=== PATIENT | male | born 1990 | race African-American/Black ===

== ENCOUNTER 2018-01-06 19:20 | Inpatient (IN) | payer OTHER ==
[2018-01-06 20:35] VITALS: BMI 23.5
--- NOTE | 2018-01-06 21:17 | HP ---
CIWA Score - CIWA Score Nausea/Vomitin (VOMITING X 3) Muscle Tremors: 3 Anxiety: 4-Mod. Anxious/Guarded Agitation: 1-Slight > Activity Paroxysmal Sweats: 4-Forehead w/Sweat Beads Orientation: 1-Uncertain about Date Tacttile Disturbances: 0-None Auditory Disturbances: 0-None Visual Disturbances: 0-None Headache: 0-None Present CIWA-Ar Total Score: 16 Admission ROS S - HPI Chief Complaint: Alcohol withdrawal symptoms Allergies/Adverse Reactions: Allergies Allergy/AdvReac Type Severity Reaction Status Date / Time No Known Allergies Allergy Verified 01/06/18 20:36 History of Present Illness: 27 years old male with 15 years history of alcohol dependence is seeking admission to detox. Patient has been in previous detox and reports insignificant period of sobriety. This is his first admission to [facility]. He reports medical history of anxiety and depression. He denies suicide attempt and suicidal ideation at this time. Exam Limitations: No Limitations - Ebola screening Have you traveled outside of the country in the last 21 days: No (N) Have you had contact with anyone from an Ebola affected area: No Have you been sick,other than usual withdrawal symptoms: No Do you have a fever: No - Review of Systems Constitutional: Chills, Loss of Appetite, Malaise, Night Sweats, Weakness EENT: reports: Sinus Pressure Respiratory: reports: No Symptoms reported Cardiac: reports: No Symptoms Reported GI: reports: Nausea, Poor Appetite, Poor Fluid Intake, Vomiting (x 3), Abdominal cramping : reports: No Symptoms Reported Musculoskeletal: reports: No Symptoms Reported Integumentary: reports: Dryness Neuro: reports: Tremors Endocrine: reports: No Symptoms Reported Hematology: reports: No Symptoms Reported Psychiatric: reports: Orientated x3, Anxious, Depressed Other Systems: Reviewed and Negative Patient History - Patient Medical History Hx Anemia: No Hx Asthma: No Hx Chronic Obstructive Pulmonary Disease (COPD): No Hx Cardiac Disorders: No Hx Hypertension: No Hx Hypercholesterolemia: No Hx Pacemaker: No HX Cerebrovascular Accident: No Hx Seizures: No Hx Dementia: No Hx Diabetes: No Hx Gastrointestinal Disorders: No Hx Genitourinary Disorders: No Hx Sexually Transmitted Disorders: No Hx Renal Disease (ESRD): No Hx Thyroid Disease: No Hx Human Immunodeficiency Virus (HIV): No (Negative 2017) Hx Hepatitis C: No Hx Depression: Yes (Not on medication) Hx Suicide Attempt: No Hx Bipolar Disorder: No Hx Schizophrenia: Yes (pascale Rios) Other Medical History: Anxiety - Not on medication - Patient Surgical History Past Surgical History: No Hx Neurologic Surgery: No Hx Cataract Extraction: No Hx Cardiac Surgery: No Hx Lung Surgery: No Hx Breast Surgery: No Hx Breast Biopsy: No Hx Abdominal Surgery: No Hx Appendectomy: No Hx Cholecystectomy: No Hx Genitourinary Surgery: No Hx Section: No Hx Orthopedic Surgery: No Anesthesia Reaction: No - PPD History Previous Implant?: Yes Documented Results: Negative w/o proof Implanted On Prior [facility] Admission?: No PPD to be Administered?: Yes - Reproductive History Patient is a Female of Child Bearing Age (11 -55 yrs old): No (MALE) - Smoking Cessation Smoking history: Current every day smoker Have you smoked in the past 12 months: Yes Aproximately how many cigarettes per day: 10 Hx Chewing Tobacco Use: No Initiated information on smoking cessation: Yes 'Breaking Loose' booklet given: 01/06/18 - Substance & Tx. History Hx Alcohol Use: Yes Hx Substance Use: No Substance Use Type: Alcohol Hx Substance Use Treatment: Yes ([facility]) - Substances Abused Alcohol Route: Oral Frequency: Daily Amount used: LIQUOR- 1 PINT, BEER- 1 SIX PACK Age of first use: 12 Date of Last Use: 01/06/18 Family Disease History - Family Disease History Family History: Denies Admission Physical Exam BHS - Vital Signs Vital Signs: Vital Signs - 24 hr 01/06/18 20:28 Temperature 97.9 F Pulse Rate 80 Respiratory 18 Rate Blood Pressure 146/95 - Physical General Appearance: Yes: Moderate Distress, Tremorous, Irritable, Sweating, Anxious HEENTM: Yes: EOMI, Normal ENT Inspection, Normocephalic, Normal Voice, JUAN RAMON, Nasal Congestion Respiratory: Yes: Lungs Clear, Normal Breath Sounds, No Respiratory Distress Neck: Yes: Supple Breast: Yes: Breast Exam Deferred Cardiology: Yes: Regular Rhythm, Regular Rate Abdominal: Yes: Normal Bowel Sounds, Soft Genitourinary: Yes: Within Normal Limits Back: Yes: Normal Inspection Musculoskeletal: Yes: Within Normal Limits Extremities: Yes: Tremors 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, Motor Strength 5/5 Integumentary: Yes: Warm Lymphatic: Yes: Within Normal Limits - Diagnostic (1) Alcohol dependence with uncomplicated withdrawal Current Visit: Yes Status: Chronic (2) Depression Current Visit: Yes Status: Chronic Qualifiers: Depression Type: unspecified Qualified Code(s): F32.9 - Major depressive disorder, single episode, unspecified (3) Anxiety Current Visit: Yes Status: Chronic Cleared for Admission [facility] - Detox or Rehab [facility] Level of Care: Medically Managed Detox Regimen/Protocol: Librium S Breath Alcohol Content Breath Alcohol Content: 0.038 Urine Drug Screen - Results Drug Screen Negative: Yes
[2018-01-06] MEDS ORDERED: LOPERAMIDE HCL 2 MG CAPSULE PO PRN (21:28)
[2018-01-06] MEDS ORDERED: IBUPROFEN 400 MG TABLET (FP) PO PRN (21:28)
[2018-01-06] MEDS ORDERED: MAGNESIUM HYDROX 2400MG/30ML ORAL SUSPENSION 30 ML CUP PO PRN (21:28)
[2018-01-06] MEDS ORDERED: MAG HYDROX/AL HYDROX/SIMETH 30 ML UNIT-DOSE CUP PO PRN (21:28)
[2018-01-06] MEDS ORDERED: ACETAMINOPHEN 325 MG TABLET (FP) PO PRN (21:28)
[2018-01-06] MEDS ORDERED: MAGNESIUM CITRATE 300 ML BOTTLE PO PRN (21:28)
[2018-01-06] MEDS ORDERED: P-EPHED 60MG/TRIPROLIDI 2.5MG TABLET PO PRN (21:28)
[2018-01-06] MEDS ORDERED: MENTHOL/PHENOL 1 EACH UD MM PRN (21:28)
[2018-01-06] MEDS ORDERED: chlordiazePOXIDE HCL 25 MG CAPSULE PO PRN (21:28)
[2018-01-06] MEDS ORDERED: guaiFENesin/D-METHORPHAN HB 10 ML UNIT-DOSE CUPS PO PRN (21:28)
[2018-01-06] MEDS ORDERED: MELATONIN 5 MG TABLETS PO PRN (22:00)
[2018-01-06] MEDS: THIAMINE HCL 100 MG TABLET (FP) PO SCH (23:34)
[2018-01-06] MEDS: chlordiazePOXIDE HCL 25 MG CAPSULE PO SCH (23:34)
[2018-01-07] MEDS: chlordiazePOXIDE HCL 25 MG CAPSULE PO SCH ×4 (05:14→22:04)
--- NOTE | 2018-01-07 10:08 | CONSULT ---
[facility] Psychiatric Consult - Data Date of interview: 01/07/18 Admission source: Self-referred Identifying data: Patient is a 27 y/o male single, unemployed, homeless, no support system, father of 3 Substance Abuse History: Admitted for the first time to [facility] due to ETOH use disorder. He has been drinking since his adolescence age. Drink beer and rhum. He has been in an out patient Detox treatment in [facility]. Refer to addiction counselor note for more detailed history Medical History: He denies active medical problem Psychiatric History: He has prior psychiatric hospitalizations in [address] [facility]. Diagnosed with Schizophrenia medciated with Haldol and Cogentin and Trazodone. He attends out patient care treatment @ [facility]. Denies feeling depressed or anxious. Denies auditory or visual hallucination, denies suicidal or hoimicidal ideation Physical/Sexual Abuse/Trauma History: Denied Mental Status Exam - Mental Status Exam Alert and Oriented to: Place, Person Cognitive Function: Fair Patient Appearance: Unkempt, Disheveled Mood: Apathetic, Depressed Affect: Constricted Patient Behavior: Fatigued, Guarded, Suspicious, Cooperative Speech Pattern: Delayed, Pressured Voice Loudness: Moderately Soft/Quiet Thought Process: Loose Associations Thought Disorder: Not Present Hallucinations: Denies Suicidal Ideation: Denies Homicidal Ideation: Denies Insight/Judgement: Poor Sleep: Poorly Appetite: Fair Muscle strength/Tone: Normal Gait/Station: Normal Psychiatric Findings - Problem List ([place] 1, 2,3) (1) Schizophrenia Current Visit: Yes Status: Acute (2) Alcohol dependence with uncomplicated withdrawal Current Visit: Yes Status: Chronic (3) Depression Current Visit: Yes Status: Chronic Qualifiers: Depression Type: unspecified Qualified Code(s): F32.9 - Major depressive disorder, single episode, unspecified - Initial Treatment Plan Initial Treatment Plan: Continue Detox treatment. Monitor progress. psychoeducation. Haldol 5 mg po daily. Cogentin 2 mg po daily. Trazodone 50 mg po q cummings
[2018-01-07] MEDS: PRENATAL VITAMINS W/ FOLIC ACID TABLET (FP) PO SCH (10:13)
[2018-01-07] MEDS ORDERED: HALOPERIDOL 5 MG TABLET (FP) PO ONE (10:30)
[2018-01-07] MEDS ORDERED: BENZTROPINE MESYLATE 2 MG TABLET PO SCH (10:30)
[2018-01-07 11:20] LABS: HEMATOCRIT 45.1 % (35.4-49); MCH 28.5 pg (25.7-33.7); MCHC 33.3 g/dl (32.0-35.9); MEAN CELL VOLUME 85.8 fl (80-96); MEAN PLT VOLUME 7.2 fl (7.5-11.1); PLATELET COUNT 198 K/MM3 (134-434); RBC 5.26 M/mm3 (4.00-5.60); RDW 12.7 % (11.9-15.9); WHITE BLOOD COUNT 6.3 K/mm3 (4.0-10.0)
[2018-01-07 11:35] LABS: ALBUMIN 3.6 g/dl (3.4-5.0); ALK PHOS 64 U/L (45-117); ANION GAP 8 MMOL/L (8-16); BILIRUBIN,TOTAL 0.5 mg/dL (0.2-1); BLOOD UREA NITROGEN 8 mg/dL (7-18); CALCIUM 9.1 mg/dL (8.5-10.1); CHLORIDE 103 mmol/L (98-107); CO2 29 mmol/L (21-32); CREATININE 1.1 mg/dL (0.55-1.3); GLUCOSE,RANDOM 88 mg/dL (74-106); POTASSIUM 3.9 mmol/L (3.5-5.1); SGOT/AST 36 U/L (15-37); SGPT/ALT 28 U/L (13-61); SODIUM 139 mmol/L (136-145); TOT PROT 6.7 g/dl (6.4-8.2)
[2018-01-07] MEDS ORDERED: HALOPERIDOL 5 MG TABLET (FP) PO PRN (13:35)
--- NOTE | 2018-01-07 16:10 | PN ---
S CIWA - CIWA Score Nausea/Vomitin Muscle Tremors: 4-Moderate,w/Arms Extend Anxiety: 4-Mod. Anxious/Guarded Agitation: 4-Moderately Restless Paroxysmal Sweats: 3 Orientation: 0-Oriented Tacttile Disturbances: 0-None Auditory Disturbances: 0-None Visual Disturbances: 0-None Headache: 1-Very Mild CIWA-Ar Total Score: 18 BHS Progress Note (SOAP) Subjective: Sweating, chills, interrupted sleep, body aches Objective: 01/07/18 16:09 Last Vital Signs Temp Pulse Resp BP Pulse Ox 97.2 F L 82 20 122/80 01/07/18 14:56 01/07/18 14:56 01/07/18 14:56 01/07/18 14:56 Laboratory Tests 01/07/18 01/07/18 01/07/18 07:49 07:49 07:49 WBC 6.3 RBC 5.26 Hgb 15.0 Hct 45.1 MCV 85.8 MCH 28.5 MCHC 33.3 RDW 12.7 Plt Count 198 MPV 7.2 L Sodium 139 Potassium 3.9 Chloride 103 Carbon Dioxide 29 Anion Gap 8 BUN 8 Creatinine 1.1 Creat Clearance w eGFR > 60 Random Glucose 88 Calcium 9.1 Total Bilirubin 0.5 AST 36 ALT 28 Alkaline Phosphatase 64 Total Protein 6.7 Albumin 3.6 RPR Titer HIV 1&2 Antibody Screen Negative HIV P24 Antigen Negative 01/07/18 07:49 WBC RBC Hgb Hct MCV MCH MCHC RDW Plt Count MPV Sodium Potassium Chloride Carbon Dioxide Anion Gap BUN Creatinine Creat Clearance w eGFR Random Glucose Calcium Total Bilirubin AST ALT Alkaline Phosphatase Total Protein Albumin RPR Titer Nonreactive HIV 1&2 Antibody Screen HIV P24 Antigen Labs reviewed Assessment: 01/07/18 16:09 Withdrawal sx Plan: Continue detox
[2018-01-07] MEDS: THIAMINE HCL 100 MG TABLET (FP) PO SCH (22:03)
[2018-01-07] MEDS: HALOPERIDOL 5 MG TABLET (FP) PO SCH (22:03)
[2018-01-07] MEDS: traZODone HCL 50 MG TABLET (FP) PO SCH (22:03)
[2018-01-08] MEDS: chlordiazePOXIDE HCL 25 MG CAPSULE PO SCH ×3 (05:29→17:24)
[2018-01-08] MEDS: BENZTROPINE MESYLATE 1 MG TABLET (FP) PO SCH (10:18)
[2018-01-08] MEDS: PRENATAL VITAMINS W/ FOLIC ACID TABLET (FP) PO SCH (10:18)
--- NOTE | 2018-01-08 10:51 | PN ---
S CIWA - CIWA Score Nausea/Vomitin Muscle Tremors: 3 Anxiety: 3 Agitation: 3 Paroxysmal Sweats: 3 Orientation: 0-Oriented Tacttile Disturbances: 0-None Auditory Disturbances: 0-None Visual Disturbances: 0-None Headache: 0-None Present CIWA-Ar Total Score: 14 BHS Progress Note (SOAP) Subjective: Sweating, interrupted sleep Objective: 01/08/18 10:48 Last Vital Signs Temp Pulse Resp BP Pulse Ox 96.6 F L 78 18 92/61 01/08/18 09:34 01/08/18 09:34 01/08/18 09:34 01/08/18 09:34 Hypotension noted Laboratory Tests 01/07/18 01/07/18 01/07/18 07:49 07:49 07:49 WBC 6.3 RBC 5.26 Hgb 15.0 Hct 45.1 MCV 85.8 MCH 28.5 MCHC 33.3 RDW 12.7 Plt Count 198 MPV 7.2 L Sodium 139 Potassium 3.9 Chloride 103 Carbon Dioxide 29 Anion Gap 8 BUN 8 Creatinine 1.1 Creat Clearance w eGFR > 60 Random Glucose 88 Calcium 9.1 Total Bilirubin 0.5 AST 36 ALT 28 Alkaline Phosphatase 64 Total Protein 6.7 Albumin 3.6 RPR Titer HIV 1&2 Antibody Screen Negative HIV P24 Antigen Negative 01/07/18 07:49 WBC RBC Hgb Hct MCV MCH MCHC RDW Plt Count MPV Sodium Potassium Chloride Carbon Dioxide Anion Gap BUN Creatinine Creat Clearance w eGFR Random Glucose Calcium Total Bilirubin AST ALT Alkaline Phosphatase Total Protein Albumin RPR Titer Nonreactive HIV 1&2 Antibody Screen HIV P24 Antigen Labs reviewed Assessment: 01/08/18 10:50 Withdrawal sx Noted with hypotension Plan: Continue detox Hypotension: asymptomatic, encouraged PO water hydration
[2018-01-08] MEDS: traZODone HCL 50 MG TABLET (FP) PO SCH (22:04)
[2018-01-08] MEDS: THIAMINE HCL 100 MG TABLET (FP) PO SCH (22:04)
[2018-01-08] MEDS: HALOPERIDOL 5 MG TABLET (FP) PO SCH (22:04)
[2018-01-08] MEDS: chlordiazePOXIDE 5 MG CAPSULE PO SCH (22:05)
[2018-01-09] MEDS: chlordiazePOXIDE 5 MG CAPSULE PO SCH ×3 (05:20→17:30)
[2018-01-09] MEDS: PRENATAL VITAMINS W/ FOLIC ACID TABLET (FP) PO SCH (10:13)
[2018-01-09] MEDS: BENZTROPINE MESYLATE 1 MG TABLET (FP) PO SCH (10:13)
--- NOTE | 2018-01-09 11:08 | EKG ---
Test Reason : Blood Pressure : / mmHG Vent. Rate : 067 BPM Atrial Rate : 067 BPM P-R Int : 120 ms QRS Dur : 090 ms QT Int : 394 ms P-R-T Axes : 057 061 049 degrees QTc Int : 416 ms NORMAL SINUS RHYTHM NORMAL ECG NO PREVIOUS ECGS AVAILABLE Confirmed by Ridge Stewart MD ([id number]) on 01/09/2018 11:07:39 AM Referred By: Confirmed By:Ridge Stewart MD
--- NOTE | 2018-01-09 11:17 | PN ---
B[facility] Progress Note (SOAP) Subjective: Tremor, sweating Objective: 01/09/18 11:15 Last Vital Signs Temp Pulse Resp BP Pulse Ox 97.1 F L 73 16 98/67 01/09/18 09:20 01/09/18 09:20 01/09/18 09:20 01/09/18 09:20 Hypotension: asymptomatic Laboratory Tests 01/07/18 01/07/18 01/07/18 07:49 07:49 07:49 WBC 6.3 RBC 5.26 Hgb 15.0 Hct 45.1 MCV 85.8 MCH 28.5 MCHC 33.3 RDW 12.7 Plt Count 198 MPV 7.2 L Sodium 139 Potassium 3.9 Chloride 103 Carbon Dioxide 29 Anion Gap 8 BUN 8 Creatinine 1.1 Creat Clearance w eGFR > 60 Random Glucose 88 Calcium 9.1 Total Bilirubin 0.5 AST 36 ALT 28 Alkaline Phosphatase 64 Total Protein 6.7 Albumin 3.6 RPR Titer HIV 1&2 Antibody Screen Negative HIV P24 Antigen Negative 01/07/18 07:49 WBC RBC Hgb Hct MCV MCH MCHC RDW Plt Count MPV Sodium Potassium Chloride Carbon Dioxide Anion Gap BUN Creatinine Creat Clearance w eGFR Random Glucose Calcium Total Bilirubin AST ALT Alkaline Phosphatase Total Protein Albumin RPR Titer Nonreactive HIV 1&2 Antibody Screen HIV P24 Antigen Labs reviewed Assessment: 01/09/18 11:17 Withdrawal sx Noted with hypotension Plan: Continue detox Hypotension: asymptomatic, encouraged PO water intake
[2018-01-09 15:01] LABS: URINE APPEARANCE CLEAR; URINE BILIRUBIN NEGATIVE (<2.0 mg/dL); URINE COLOR LTYELLOW; URINE GLUCOSE (UA) NEGATIVE (NEGATIVE); URINE KETONE NEGATIVE (NEGATIVE); URINE LEUK ESTERASE NEGATIVE (NEGATIVE); URINE NITRITE NEGATIVE (NEGATIVE); URINE PROTEIN NEGATIVE (NEGATIVE); URINE UROBILINOGEN NEGATIVE mg/dL (0.2-1.0)
[2018-01-09] MEDS ORDERED: HYDROCORTISONE 1% TOPICAL CREAM 30 GM TUBE TP SCH (22:00)
[2018-01-09] MEDS: chlordiazePOXIDE HCL 10 MG CAPSULE PO SCH (22:11)
[2018-01-09] MEDS: THIAMINE HCL 100 MG TABLET (FP) PO SCH (22:11)
[2018-01-09] MEDS: HALOPERIDOL 5 MG TABLET (FP) PO SCH (22:11)
[2018-01-09] MEDS: traZODone HCL 50 MG TABLET (FP) PO SCH (22:11)
[2018-01-10] MEDS: chlordiazePOXIDE HCL 10 MG CAPSULE PO SCH (05:24)
[2018-01-10 06:33] VITALS: BP 108/70; PULSE 73; TEMP 97.2
--- NOTE | 2018-01-10 09:52 | DS ---
[facility] Detox Discharge Summary Admission Date: 01/06/18 Discharge Date: 01/10/18 - History Present History: Alcohol Dependence Pertinent Past History: Denies - Physical Exam Results Vital Signs: Vital Signs Temperature 97.2 F L 01/10/18 06:32 Pulse Rate 73 01/10/18 06:32 Respiratory Rate 18 01/10/18 06:32 Blood Pressure 108/70 01/10/18 06:32 O2 Sat by Pulse Oximetry (%) Pertinent Admission Physical Exam Findings: Withdrawal sxs Laboratory Tests 01/07/18 01/07/18 01/07/18 07:49 07:49 07:49 WBC 6.3 RBC 5.26 Hgb 15.0 Hct 45.1 MCV 85.8 MCH 28.5 MCHC 33.3 RDW 12.7 Plt Count 198 MPV 7.2 L Sodium 139 Potassium 3.9 Chloride 103 Carbon Dioxide 29 Anion Gap 8 BUN 8 Creatinine 1.1 Creat Clearance w eGFR > 60 Random Glucose 88 Calcium 9.1 Total Bilirubin 0.5 AST 36 ALT 28 Alkaline Phosphatase 64 Total Protein 6.7 Albumin 3.6 Urine Color Urine Appearance Urine pH Ur Specific [place] Urine Protein Urine Glucose (UA) Urine Ketones Urine Blood Urine Nitrite Urine Bilirubin Urine Urobilinogen Ur Leukocyte Esterase RPR Titer HIV 1&2 Antibody Screen Negative HIV P24 Antigen Negative 01/07/18 01/09/18 07:49 08:40 WBC RBC Hgb Hct MCV MCH MCHC RDW Plt Count MPV Sodium Potassium Chloride Carbon Dioxide Anion Gap BUN Creatinine Creat Clearance w eGFR Random Glucose Calcium Total Bilirubin AST ALT Alkaline Phosphatase Total Protein Albumin Urine Color Ltyellow Urine Appearance Clear Urine pH 6.0 Ur Specific [place] 1.017 Urine Protein Negative Urine Glucose (UA) Negative Urine Ketones Negative Urine Blood Negative Urine Nitrite Negative Urine Bilirubin Negative Urine Urobilinogen Negative Ur Leukocyte Esterase Negative RPR Titer Nonreactive HIV 1&2 Antibody Screen HIV P24 Antigen Labs reviewed - Treatment Hospital Course: Detox Protocol Followed, Detoxed Safely, Responded well, Discharged Condition Good - Medication Discharge Medications: Ambulatory Orders Benztropine Mesylate [Cogentin -] 1 mg PO HS 01/06/18 Haloperidol [Haldol -] 5 mg PO HS 01/06/18 traZODone HCL [Trazodone HCl] 50 mg PO HS 01/06/18 - Diagnosis (1) Schizophrenia Current Visit: Yes Status: Chronic (2) Alcohol dependence with uncomplicated withdrawal Current Visit: Yes Status: Acute (3) Anxiety Current Visit: Yes Status: Acute (4) Depression Current Visit: Yes Status: Chronic Qualifiers: Depression Type: unspecified Qualified Code(s): F32.9 - Major depressive disorder, single episode, unspecified (5) Hypotension Current Visit: Yes Status: Resolved - AMA Did Patient Leave Against Medical Advice: No (F/U with your PCP within 1-2 weeks )
== END 2018-01-10 09:35 | disposition home or self-care (01) | DRG 775 ==
LOC: YASAS 19:20 → Y3N 22:11
PROC: HZ2ZZZZ Detoxification Services for Substance Abuse Treatment (ICD-10-PCS; principal; 2018-01-06)
DX: F10.230 Alcohol dependence with withdrawal, uncomplicated (principal); F17.210 Nicotine dependence, cigarettes, uncomplicated; F20.9 Schizophrenia, unspecified; F41.9 Anxiety disorder, unspecified; F32.9 Major depressive disorder, single episode, unspecified; I95.9 Hypotension, unspecified
CPT/HCPCS: 36415; 80053; 81003; 85027; 86593; 87389; 93005; 93010